=== PATIENT | male | born 1995 | race Caucasian/White ===

== ENCOUNTER 2016-12-02 18:37 | Emergency (ER) | payer OTHER, BC ==
[2016-12-02 18:46] VITALS: TEMP 98.2
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
--- NOTE | 2016-12-02 20:16 | XR ---
EXAMINATION TYPE: XR chest 2V DATE OF EXAM: 12/02/2016 COMPARISON: 05/04/2015 HISTORY: Chest pain TECHNIQUE: Frontal and lateral views of the chest are obtained. FINDINGS: Heart and mediastinum are normal. Lungs are clear. Diaphragm is normal. Bony thorax appear s normal. IMPRESSION: Normal chest. No change.
--- NOTE | 2016-12-02 20:16 | XR ---
EXAMINATION TYPE: XR clavicle LT DATE OF EXAM: 12/02/2016 COMPARISON: NONE HISTORY: Pain TECHNIQUE: 2 views FINDINGS: I see no fracture nor dislocation. AC joint is intact. IMPRESSION: Normal left clavicle.
[2016-12-02 20:28] VITALS: BP 111/65; PULSE 65; RESP 20
== END 2016-12-02 20:27 | disposition home or self-care (01) ==
LOC: EC 18:37
DX: S01.81XA Laceration without foreign body of other part of head, initial encounter (principal); V43.62XA Car passenger injured in collision with other type car in traffic accident, initial encounter; F17.200 Nicotine dependence, unspecified, uncomplicated
CPT/HCPCS: 70450; 71020; 72125; 99284